=== PATIENT | female | born 1950 | race Caucasian/White ===

== ENCOUNTER 2022-03-13 08:51 | Emergency (ER) | payer OTHER ==
[~2022-03-13] VITALS: Ht 152.4 cm; Wt 31.3 kg
== END 2022-03-13 11:20 | disposition home or self-care (01) ==
LOC: ER 08:51
DX: S22.41XA Multiple fractures of ribs, right side, initial encounter for closed fracture (principal); W18.30XA Fall on same level, unspecified, initial encounter; Y93.9 Activity, unspecified; Y92.9 Unspecified place or not applicable; M19.90 Unspecified osteoarthritis, unspecified site; E03.9 Hypothyroidism, unspecified; Z90.11 Acquired absence of right breast and nipple